=== PATIENT | female | born 1980 | race African-American/Black ===

== ENCOUNTER 2017-11-19 06:06 | Day surgery (SDC) | payer BC ==
[~2017-11-19] VITALS: Ht 167.6 cm; Wt 83.0 kg
[2017-11-19] MEDS ORDERED: CEFAZOLIN 1 GM IVPB PREMIX 50 ML IV ONE (09:15)
[2017-11-19] MEDS ORDERED: CEFAZOLIN SOD 1 GM/ ISO 50 ML PREMIX IV ONE (09:30)
[2017-11-19] MEDS ORDERED: LR 1,000 ML IV ONE (09:58)
[2017-11-19] MEDS ORDERED: ONDANSETRON HCL 4 MG/2 ML VIAL IVP PRN (10:00)
[2017-11-19] MEDS ORDERED: DIPHENHYDRAMINE INJ 50 MG/ML VIAL IVP PRN (10:00)
[2017-11-19] MEDS ORDERED: NALOXONE HCL 0.4 MG/ML AMP (NARCAN) IVP PRN (10:00)
[2017-11-19] MEDS ORDERED: NALBUPHINE HCL 10 MG/ML AMP IVP PRN (10:00)
[2017-11-19] MEDS ORDERED: ePHEDrine sulfate 50 MG/ML VIAL IVP PRN (10:00)
[2017-11-19] MEDS ORDERED: KETOROLAC TROMETHAMINE 30 MG VIAL IM PRN (10:00)
[2017-11-19] MEDS ORDERED: LR 1,000 ML IV.SOLN IV ONE (10:10)
[2017-11-19] MEDS ORDERED: ONDANSETRON HCL 4 MG/2 ML VIAL IVP ONE (10:10)
[2017-11-19] MEDS ORDERED: NS IRRIG SOLN 1000 ML IR ONE (10:10)
[2017-11-19] MEDS ORDERED: DEXAMETHASONE SOD PHOSPHATE 4 MG/ML VIAL IVP ONE (10:10)
[2017-11-19] MEDS ORDERED: BUPIVACAINE /PF 0.75% 10 ML VIAL INJ ONE (10:10)
[2017-11-19] MEDS ORDERED: METOCLOPRAMIDE HCL 10 MG/2 ML VIAL IVP ONE (10:10)
[2017-11-19] MEDS ORDERED: TERBUTALINE SULFATE 1 MG/ML VIAL SUBCUT ONE (10:15)
[2017-11-19] MEDS ORDERED: MORPHINE SULFATE 10 MG/ML VIAL IVP PRN (10:15)
[2017-11-19 10:39] VITALS: BP_SYST 105
[2017-11-19] MEDS ORDERED: LR 1,000 ML IV SCH (13:00)
[2017-11-19] MEDS: ceFAZolin SODIUM 1 GM in D5W 50 ML IV SCH ×2 (17:43→22:00)
[2017-11-19] MEDS: ONDANSETRON HCL 4 MG/2 ML VIAL IVP PRN ×2 (17:44→21:41)
== END 2017-11-20 14:35 | disposition home or self-care (01) ==
LOC: SDS 06:06 → SMU 06:06 → SPU 11:11 → SDS 11-20 14:35
PROVIDERS: ATTEND Specialist
DX: O34.32 Maternal care for cervical incompetence, second trimester (principal); Z37.9 Outcome of delivery, unspecified
CPT/HCPCS: 59320; 87070 ×2; J0690 ×2; J1100; J2405; J2765; J3490; J7060; J7120

== ENCOUNTER 2018-02-16 16:43 | Inpatient (IN) | payer BC ==
[~2018-02-16] VITALS: Ht 167.6 cm; Wt 88.5 kg
[2018-02-16] MEDS ORDERED: LR 1,000 ML IV ONE (17:00)
[2018-02-16] MEDS ORDERED: CEFAZOLIN 2 GM IVPB PREMIX 50 ML IV ONE (17:00)
[2018-02-16 17:43] LABS: HEMATOCRIT 34.4 % (36-48); HEMOGLOBIN 11.2 g/dL (12.0-16.0); MEAN CORPUSCULAR HEMOGLOBIN 28 pg (27-31); MEAN CORPUSCULAR HGB CONC 33 % (32-36); MEAN CORPUSCULAR VOLUME 86 fL (79.0-98.0); PLATELET COUNT (AUTO) 182 K/uL (130-430); RED CELL DISTRIBUTION WIDTH 16.3 % (9.0-15.0); WHITE BLOOD COUNT (AUTO) 6.9 K/uL (4.8-10.8)
[2018-02-16 18:05] LABS: BILIRUBIN,URINE NEGATIVE (NEGATIVE); BLOOD, URINE TRACE (NEGATIVE); CLARITY/URINE CLEAR (CLEAR); COLOR,URINE YELLOW (YELLOW); GLUCOSE,URINE NEGATIVE (NEGATIVE); KETONES,URINE NEGATIVE (NEGATIVE); LEUKOCYTE ESTERASE ,URINE 2+ (NEGATIVE); NITRITE, URINE NEGATIVE (NEGATIVE); PH,URINE 5.5 (5.0-8.0); PROTEIN URINE TRACE (NEGATIVE); UROBILINOGEN,URINE 0.2 (0.2-1.0)
[2018-02-16 18:09] LABS: BACTERIA,URINE MODERATE /HPF (None Seen); WBC,URINE 20-50 /HPF (0-3)
[2018-02-16] MEDS ORDERED: MORPHINE SULFATE 10MG/10ML PF AMP SP SCH (19:00)
[2018-02-16] MEDS ORDERED: fentaNYL CITRATE/PF 100 MCG/2 ML AMP IVP PRN ×2 (19:00)
[2018-02-16] MEDS ORDERED: NALOXONE HCL 0.4 MG/ML AMP (NARCAN) IVP PRN ×2 (19:00)
[2018-02-16] MEDS ORDERED: DIPHENHYDRAMINE INJ 50 MG/ML VIAL IVP PRN (19:00)
[2018-02-16] MEDS ORDERED: NALBUPHINE HCL 10 MG/ML AMP IVP PRN (19:00)
[2018-02-16] MEDS ORDERED: KETOROLAC TROMETHAMINE 60 MG/2 ML VIAL IM PRN (19:00)
[2018-02-16 19:14] VITALS: BP_SYST 130
[2018-02-16 20:22] LABS: BAND % (MANUAL) 2 % (0-6); BASOPHILS % (MANUAL) 0 % (0-2); EOSINOPHILS % (MANUAL) 5 % (0-7); LYMPHOCYTES % (MANUAL) 16 % (20-46); MONOCYTES % (MANUAL) 6 % (0-11)
[2018-02-16] MEDS ORDERED: OXYTOCIN/0.9 % SODIUM CHLORIDE 1,000 ML IV ONE (20:29)
[2018-02-16] MEDS ORDERED: LR 1,000 ML IV SCH (20:29)
[2018-02-16 20:30] VITALS: BP_SYST 139
[2018-02-16] MEDS ORDERED: LANOLIN 7 GM OINT. TP PRN (20:30)
[2018-02-16] MEDS ORDERED: RHO(D) IMMUNE GLOBULIN/MALTOSE 1500 UNITS/1.3 ML (WINHRO) IM PRN (20:30)
[2018-02-16] MEDS ORDERED: BISACODYL 10 MG/SUPPOSITORY RC PRN (20:30)
[2018-02-16] MEDS ORDERED: SENNOSIDES/DOCUSATE SODIUM 1 TAB TABLET(SENOKOT-S) PO PRN (20:30)
[2018-02-16] MEDS ORDERED: DIPH-TET-PERTUS Vaccine 0.5 ML VIAL (ADACEL) I.M. PRN (20:30)
[2018-02-16] MEDS ORDERED: MEASLES,MUMPS&RUBELLA VACC/PF 12500 UNIT/0.5 ML VIAL SUBQ PRN (20:30)
[2018-02-16] MEDS ORDERED: HYDROcodone/ACETAMIN 5-325 MG TAB (NORCO/ VICODIN) PO PRN (20:30)
[2018-02-16] MEDS ORDERED: ANUSOL 1 EA SUPP.RECT (PREPARATION H) RC PRN (20:30)
[2018-02-16] MEDS ORDERED: ePHEDrine sulfate 50 MG/ML VIAL IVP ONE (20:35)
[2018-02-16] MEDS ORDERED: LR 1,000 ML IV.SOLN IV ONE (20:35)
[2018-02-16] MEDS ORDERED: ONDANSETRON HCL 4 MG/2 ML VIAL IVP ONE (20:35)
[2018-02-16] MEDS ORDERED: BUPIVACAINE /DEX PF 0.75% SPINAL 2 ML AMP INJ ONE (20:35)
[2018-02-16] MEDS ORDERED: NS IRRIG SOLN 1000 ML IR ONE (20:35)
[2018-02-16] MEDS ORDERED: MORPHINE SULFATE 10MG/10ML PF AMP EP ONE (20:35)
[2018-02-16] MEDS ORDERED: TEMAZEPAM 15 MG CAPSULE PO PRN (21:00)
[2018-02-16] MEDS: ONDANSETRON HCL 4 MG/2 ML VIAL IVP PRN (23:35)
[2018-02-17] MEDS: CEFAZOLIN 1 GM IVPB PREMIX 50 ML IV SCH ×3 (01:32→12:58)
[2018-02-17] MEDS: KETOROLAC TROMETHAMINE 30 MG VIAL IVP SCH ×2 (05:53→12:22)
[2018-02-17 07:12] LABS: HEMATOCRIT 34.9 % (36-48); HEMOGLOBIN 11.3 g/dL (12.0-16.0); MEAN CORPUSCULAR HEMOGLOBIN 28 pg (27-31); MEAN CORPUSCULAR HGB CONC 33 % (32-36); MEAN CORPUSCULAR VOLUME 86 fL (79.0-98.0); PLATELET COUNT (AUTO) 170 K/uL (130-430); RED BLOOD CELL COUNT(AUTO) 4.07 MIL/uL (4.2-6.2); RED CELL DISTRIBUTION WIDTH 16.1 % (9.0-15.0); WHITE BLOOD COUNT (AUTO) 9.6 K/uL (4.8-10.8)
[2018-02-17] MEDS: ONDANSETRON HCL 4 MG/2 ML VIAL IVP PRN (08:18)
[2018-02-17 09:31] LABS: BAND % (MANUAL) 2 % (0-6); BASOPHILS % (MANUAL) 0 % (0-2); EOSINOPHILS % (MANUAL) 0 % (0-7); LYMPHOCYTES % (MANUAL) 16 % (20-46); MONOCYTES % (MANUAL) 6 % (0-11)
[2018-02-17] MEDS: IBUPROFEN 600 MG TABLET PO SCH ×2 (18:35→23:53)
[2018-02-17] MEDS: OXYCODONE/ACETAMINOPHEN 5-325 TABLET PO PRN (18:40)
[2018-02-18] MEDS: OXYCODONE/ACETAMINOPHEN 5-325 TABLET PO PRN ×6 (00:42→21:37)
[2018-02-18] MEDS: IBUPROFEN 600 MG TABLET PO SCH ×3 (05:38→18:36)
[2018-02-18] MEDS ORDERED: KETOROLAC TROMETHAMINE 30 MG VIAL IVP SCH (06:00)
[2018-02-18] MEDS: DOCUSATE SODIUM 100 MG CAPSULE PO PRN ×2 (09:42→21:30)
[2018-02-18] MEDS: SIMETHICONE 80 MG TAB.CHEW PO PRN ×2 (13:11→18:37)
[2018-02-19] MEDS: IBUPROFEN 600 MG TABLET PO SCH ×2 (00:10→06:12)
[2018-02-19] MEDS: OXYCODONE/ACETAMINOPHEN 5-325 TABLET PO PRN ×2 (04:58→08:51)
== END 2018-02-19 11:15 | disposition home or self-care (01) | DRG 765 ==
LOC: SPU 16:43
PROVIDERS: ADMIT Specialist; ATTEND Specialist
PROC: 0UCC7ZZ Extirpation of Matter from Cervix, Via Natural or Artificial Opening (ICD-10-PCS; 2018-02-16)
PROC: 10D00Z1 Extraction of Products of Conception, Low, Open Approach (ICD-10-PCS; principal; 2018-02-16 17:00)
DX: O36.5931 Maternal care for other known or suspected poor fetal growth, third trimester, fetus 1 (principal); O60.14X0 Preterm labor third trimester with preterm delivery third trimester, not applicable or unspecified; O30.003 Twin pregnancy, unspecified number of placenta and unspecified number of amniotic sacs, third trimester; O34.211 Maternal care for low transverse scar from previous cesarean delivery; O32.8XX1 Maternal care for other malpresentation of fetus, fetus 1; Z37.2 Twins, both liveborn; Z3A.36 36 weeks gestation of pregnancy
CPT/HCPCS: 36415; 81000-TC; 85007; 85027; 86592; 86886; 86900; 86901; 87086; 94760; J0690; J1200; J1885; J2274; J2405; J2590; J3490; J7120